=== PATIENT | female | born 1965 | race African-American/Black ===

== ENCOUNTER 2019-05-09 09:30 | Emergency (ER) | payer OTHER, SELFPAY ==
[2019-05-09 09:36] VITALS: BP 106/75; PULSE 96; RESP 16; TEMP 36.9; O2SAT 98
--- NOTE | 2019-05-09 10:02 | ED.BACK ---
HPI - Back Pain/Injury General Chief Complaint: Back Pain/Injury Stated Complaint: back pain Time Seen by Provider: 05/09/19 09:58 History of Present Illness HPI Narrative: Pt is a 54 y/o female presenting to the ED c/o back pain. Pt reports she started experiencing back pain earlier today at work. Pt states she underwent back surgery in September of last year along with a neck fracture and went back to work for the first time today. Pt states the back pain is diffuse and notes it radiates to her rt thigh. Pt also reports dizziness and near-syncope, but denies dysuria or urinary frequency. Pt states she had not had a recent fall or known injury to her back recently. Pertinent past history: back surgery and other (Neck fracture) Onset (ago): unknown (Earlier today) Radiation: right upper leg (Rt thigh) Associated symptoms: other (Dizziness; Near-syncope) Related Data Home Medications Medication Instructions Recorded Confirmed cyclobenzaprine mg 05/09/19 Allergies Allergy/AdvReac Type Severity Reaction Status Date / Time No Known Allergies Allergy Verified 05/09/19 09:51 Review of Systems Review of Systems: All systems reviewed & are unremarkable except as noted in HPI and below Genitourinary: Genitourinary: Denies nocturia and Denies dysuria Musculoskeletal: Musculoskeletal: Reports back pain (Diffuse radiating to rt thigh) Neurologic: Reports dizziness and Reports syncope (Near) PMFSH Past Medical History Medical History (Updated 05/09/19 @ 11:51 by Fabiano Crooks MD) Anemia Asthma Neck fracture Surgical History Surgical History (Updated 05/09/19 @ 10:10 by Jeff Sanders) History of back surgery Social History Social History Smoking status: Unknown if ever smoked Gender identity (if verbalized by the patient): Female Exam Const: General: healthy appearing, no acute distress and alert Nutritional Appearance: well nourished HENMT: Mouth: Yes lip normal Eyes: Conjunctivae: conjunctivae normal Resp: Effort & Inspection: normal respiratory effort Back/Spine/Pelvis: Thoracic/Lumbar Spine: other (Inconsistent tenderness on lower back) Skin: General skin exam: normal color Other: Warm; Dry Neuro: General: patient oriented x3 Speech: normal speech Extrem: General: full ROM Psych: Mental Status: mental status grossly normal Affect: normal affect Course Vital Signs Vital signs: Vital Signs Temperature 36.9 C 05/09/19 09:36 Pulse Rate 96 05/09/19 09:36 Respiratory Rate 16 05/09/19 09:36 Blood Pressure 106/75 05/09/19 09:36 Pulse Oximetry 98 05/09/19 09:36 Temperature 36.9 C 05/09/19 11:10 Pulse Rate 71 05/09/19 11:10 Respiratory Rate 18 05/09/19 11:10 Blood Pressure 99/70 L 05/09/19 11:10 Pulse Oximetry 95 05/09/19 11:10 MDM - Back Pain/Injury MDM Narrative Medical decision making narrative: She had no trauma, fever, weakness, or other red flags raising concern for more serious causes of her pain. No imaging indicated. pain moderately improved with treatment. Differential Diagnosis Differential diagnosis: Likely sciatica and strain of lumbar region Medical Records Attestation: I reviewed the patient's medical records. Discharge Plan Discharge Clinical Impression: Low back pain Qualifiers: Chronicity: unspecified Back pain laterality: bilateral Sciatica presence: with sciatica Sciatica laterality: sciatica of left side Qualified Code(s): M54.42 - Lumbago with sciatica, left side Patient Disposition: Home, Self-Care Condition: Stable Instructions: Back Pain (ED) Prescriptions: New cyclobenzaprine 10 mg tablet 10 mg PO TID PRN (Reason: muscle spasm) Qty: 20 RF: 0 ibuprofen 600 mg tablet 600 mg PO QID PRN (Reason: pain) Qty: 20 RF: 0 No Action cyclobenzaprine 5 mg tablet RF: 0 Follow-up/Referrals: UNKNOWN,DOCTOR [Primary Care Provider] - Stand Alone
[2019-05-09] MEDS: KETOROLAC (*BKC) 60 MG/2 ML VIAL IM (10:24)
[2019-05-09 11:10] VITALS: BP 99/70; PULSE 71; RESP 18; TEMP 36.9; O2SAT 95
== END 2019-05-09 12:24 | disposition home or self-care (01) ==
PROVIDERS: Emergency Provider Emergency Medicine
DX: M54.42 Lumbago with sciatica, left side (principal); M54.41 Lumbago with sciatica, right side; Z86.2 Personal history of diseases of the blood and blood-forming organs and certain disorders involving the immune mechanism; J45.909 Unspecified asthma, uncomplicated
CPT/HCPCS: 96372; 99284; J1885; J3360